=== PATIENT | female | born 1960 | race Caucasian/White ===

== ENCOUNTER 2017-01-28 08:30 | Emergency (ER) | payer BC ==
[2017-01-28 08:49] VITALS: BP 129/68
--- NOTE | 2017-01-28 08:58 | UC ---
Throat Pain/Nasal David HPI - HPI Summary HPI Summary: Patient started on sunday with some pain in the upper left jaw, by today the pain is in the left maxillary sinus, and starting to feel pressure in her eye. denies fever or ear pain - History of Current Complaint Chief Complaint: UCGeneralIllness Stated Complaint: SINUS COMPLAINT Time Seen by Provider: 01/28/17 08:40 Hx Obtained From: Patient ?: No Onset/Duration: Sudden Onset, Lasting Days Severity: Moderate Associated Signs & Symptoms: Positive: Sinus Discomfort, Nasal Discharge - Allergies/Home Medications Allergies/Adverse Reactions: Allergies Allergy/AdvReac Type Severity Reaction Status Date / Time Tramadol AdvReac Vomiting Verified 01/28/17 08:40 Home Medications: Home Medications Acetaminophen TAB* [Tylenol TAB*] 2 tab PO Q4H PRN 01/28/17 [History Confirmed 01/28/17] Ibuprofen TAB* [Advil TAB*] 400 mg PO Q6H PRN 01/28/17 [History Confirmed ] PMH/Surg Hx/FS Hx/Imm Hx Previously Healthy: Yes - Surgical History Surgical History: None - Family History Known Family History: Positive: Hypertension - Social History Alcohol Use: Occasionally Substance Use Type: None Smoking Status (MU): Never Smoked Tobacco Review of Systems Constitutional: Negative Skin: Negative Eyes: Negative ENT: Dental Pain, Sore Throat, Nasal Discharge Respiratory: Negative Cardiovascular: Negative Gastrointestinal: Negative Genitourinary: Negative Motor: Negative Neurovascular: Negative Musculoskeletal: Negative Neurological: Headache Psychological: Negative All Other Systems Reviewed And Are Negative: Yes Physical Exam Triage Information Reviewed: Yes Appearance: Well-Appearing, Well-Nourished, Pain Distress Vital Signs: Initial Vital Signs Temp 98.2 F 01/28/17 08:43 Pulse 66 01/28/17 08:43 Resp 20 01/28/17 08:43 BP 129/68 01/28/17 08:43 Pulse Ox 99 01/28/17 08:43 Vital Signs Reviewed: Yes Eye Exam: Normal Eyes: Positive: Conjunctiva Clear ENT: Positive: Pharyngeal erythema, Nasal drainage, TMs normal Dental Exam: Normal Dental: Positive: Other: - erythema in gum above the eye tooth on left Neck exam: Normal Neck: Positive: Supple, Nontender, No Lymphadenopathy Respiratory Exam: Normal Respiratory: Positive: Chest non-tender, Lungs clear, Normal breath sounds Cardiovascular Exam: Normal Cardiovascular: Positive: RRR, No Murmur, Pulses Normal Abdominal Exam: Normal Abdomen Description: Positive: Nontender, No Organomegaly, Soft Bowel Sounds: Positive: Present Musculoskeletal Exam: Normal Musculoskeletal: Positive: Strength Intact, ROM Intact, No Edema Neurological Exam: Normal Neurological: Positive: Alert, Muscle Tone Normal Psychological Exam: Normal Skin Exam: Normal Throat Pain/Nasal Course/Dx - Course Course Of Treatment: hx obtained, exam performed, meds reviewed, treated for sinusitis and possible dental infection. - Differential Dx/Diagnosis Differential Diagnosis/HQI/PQRI: Influenza, Laryngitis, Otitis Media, Peritonsillar Abscess, Pharyngitis, Sinusitis Provider Diagnoses: sinusitis of left maxilalry sinus. dental pain Discharge - Discharge Plan Condition: Stable Disposition: HOME Prescriptions: Amoxicillin/Clavulanate TAB* [Augmentin TAB 875*] 875 mg PO BID #20 tab Patient Education Materials: Sinusitis (ED), Warm Compress or Soak (ED) Additional Instructions: 1. take the medication as prescribed. 2. If dental pain persists, follow up with your dentist
== END 2017-01-28 09:21 | disposition home or self-care (01) ==
LOC: UCCORT 08:30
DX: J32.0 Chronic maxillary sinusitis (principal); K08.89 Other specified disorders of teeth and supporting structures; Z88.5 Allergy status to narcotic agent
CPT/HCPCS: 99212; G0463